=== PATIENT | female | born 1965 | race Caucasian/White ===

== ENCOUNTER 2022-05-02 07:28 | Day surgery (SDC) | payer MEDICARE, OTHER ==
[~2022-05-02 07:28] MED LIST: Lactated Ringers 1,000 ML IV SCH; Lidocaine 1%/Sod Bicarbonate in NS 8.4% 1 ML Syringe IDERM PRN; Sodium Chloride 0.9% 10 ML Syringe FLUSH PRN; Sodium Chloride 0.9% 10 ML Syringe FLUSH SCH
[2022-05-02] MEDS ORDERED: Albuterol 0.083% 2.5 MG/3 ML Neb Soln NEB SCH (08:59)
== END 2022-05-02 09:45 | disposition home or self-care (01) ==
LOC: JD.SDS 07:28
PROVIDERS: ATTEND Surgery
DX: K21.9 Gastro-esophageal reflux disease without esophagitis (principal); R19.5 Other fecal abnormalities; Z53.09 Procedure and treatment not carried out because of other contraindication; E11.9 Type 2 diabetes mellitus without complications; F32.A Depression, unspecified; F17.210 Nicotine dependence, cigarettes, uncomplicated; F41.9 Anxiety disorder, unspecified; E78.00 Pure hypercholesterolemia, unspecified; R10.32 Left lower quadrant pain; R91.8 Other nonspecific abnormal finding of lung field; E66.9 Obesity, unspecified; K76.0 Fatty (change of) liver, not elsewhere classified; Z98.890 Other specified postprocedural states; Z90.710 Acquired absence of both cervix and uterus; Z79.899 Other long term (current) drug therapy; Z79.82 Long term (current) use of aspirin; Z68.29 Body mass index [BMI] 29.0-29.9, adult
CPT/HCPCS: 74177; J3490; J7120; Q9967

== ENCOUNTER 2023-01-17 11:52 | Emergency (ER) | payer MEDICARE, OTHER, MEDICAID ==
[2023-01-17] MEDS ORDERED: Iopamidol 755 Mg/ML 100 ML Bottle IVPUSH ONE (12:26)
[2023-01-17] MEDS ORDERED: Sodium Chloride 0.9% 100 ML IV SCH (12:30)
[2023-01-17 12:43] LABS: BASOPHILS PERCENT AUTO 0.5 % (0.0-1.0); EOSINOPHILS ABSOLUTE AUTO 0.1 K/mm3 (0.0-0.4); EOSINOPHILS PERCENT AUTO 1.7 % (0.0-6.0); HEMATOCRIT 48.2 % (37.0-47.0); HEMOGLOBIN 15.4 gm/dl (12.0-16.0); IMMATURE GRAN ABSOLUTE AUTO 0.01 K/mm3 (0.00-0.05); IMMATURE GRAN PERCENT AUTO 0.2 % (0.0-0.4); LYMPHOCYTES ABSOLUTE AUTO 1.5 K/mm3 (1.0-4.8); LYMPHOCYTES PERCENT AUTO 25.7 % (24.0-44.0); MEAN CORPUSCULAR HEMOGLOBIN 25.1 pg (28.0-32.0); MEAN CORPUSCULAR VOLUME 78.5 fl (83.0-99.0); MEAN PLATELET VOLUME 9.8 fl (9.4-12.3); MONOCYTES ABSOLUTE AUTO 0.7 K/mm3 (0.0-0.8); MONOCYTES PERCENT AUTO 11.3 % (0.0-8.0); NEUTROPHILS ABSOLUTE AUTO 3.6 K/mm3 (1.8-7.7); NEUTROPHILS PERCENT AUTO 60.6 % (41.0-71.0); PLATELET COUNT,PLT 157 K/mm3 (150-400); RED BLOOD CELL COUNT 6.14 M/mm3 (4.10-5.30); WHITE BLOOD CELL COUNT,WBC 5.92 K/mm3 (3.9-11.3)
[2023-01-17] MEDS ORDERED: LORazepam 2 MG/ML SDV IVPUSH ONE ×2 (12:56→14:01)
[2023-01-17] MEDS ORDERED: Morphine 2 MG/ML SYRINGE IVPUSH ONE (12:56)
[2023-01-17] MEDS: Sodium Chloride 0.9% 10 ML Syringe FLUSH PRN ×2 (12:58→13:22)
[2023-01-17 13:11] LABS: INR 1.18; PROTHROMBIN TIME 12.5 SECONDS (9.7-12.0)
[2023-01-17 13:12] LABS: PTT,PARTIAL THROMBOPLSTIN TIME 29.9 SECONDS (21.7-31.4)
[2023-01-17 13:13] LABS: A/G RATIO 0.8 (1-2); ALBUMIN 3.1 g/dl (3.4-5.0); ANION GAP 15.9 (5-15); BILIRUBIN TOTAL 0.7 mg/dL (0.2-1.0); BUN/CREATININE RATIO 19.3 (14-18); CREATININE 1.4 mg/dL (0.55-1.02); EST CRCL DRUG DOSING (CG) 35.06 mL/min; POTASSIUM,K 2.9 mEq/L (3.5-5.1); PROTEIN TOTAL,TP 6.8 g/dl (6.4-8.2)
[2023-01-17] MEDS ORDERED: Sodium Chloride 0.9% 1,000 ML IV SCH (14:15)
[2023-01-17] MEDS: Potassium Chloride 10 MEQ in Premix Bag 1 BAG IV SCH ×4 (15:15→19:36)
[2023-01-17] MEDS ORDERED: Potassium Chloride 20 MEQ Tab.ER PO ONE (20:29)
== END 2023-01-17 21:01 | disposition home or self-care (01) ==
LOC: JD.ED 11:52
DX: R53.1 Weakness (principal); I10 Essential (primary) hypertension; K21.9 Gastro-esophageal reflux disease without esophagitis; E11.9 Type 2 diabetes mellitus without complications; E66.9 Obesity, unspecified; Z79.82 Long term (current) use of aspirin; Z88.8 Allergy status to other drugs, medicaments and biological substances; Z68.26 Body mass index [BMI] 26.0-26.9, adult
CPT/HCPCS: 36415; 70450; 70496; 70498; 70551; 71045; 72125; 80053; 82947; 84484; 85025; 85610; 85730; 93005; 96361; 96365; 96366; 96375; 96376; 99285; A9270; J2060; J2270; J3480; J3490; J7030; Q9967; 93010; 99284

== ENCOUNTER 2023-11-11 21:03 | Inpatient (IN) | payer MEDICARE, OTHER, MEDICAID ==
[2023-11-11] MEDS ORDERED: Naloxone 0.4 MG/ML SDV IVPUSH PRN (21:49)
[2023-11-11] MEDS: Morphine 4 MG/ML Syringe IVPUSH PRN (21:56)
[2023-11-11] MEDS: Sodium Chloride 0.9% 10 ML Syringe FLUSH PRN (21:57)
[2023-11-11 22:05] LABS: BASOPHILS PERCENT AUTO 0.3 % (0.0-1.0); EOSINOPHILS ABSOLUTE AUTO 0.1 K/mm3 (0.0-0.4); HEMATOCRIT 47.8 % (37.0-47.0); HEMOGLOBIN 15.1 gm/dl (12.0-16.0); IMMATURE GRAN ABSOLUTE AUTO 0.05 K/mm3 (0.00-0.05); IMMATURE GRAN PERCENT AUTO 0.4 % (0.0-0.4); LYMPHOCYTES ABSOLUTE AUTO 1.5 K/mm3 (1.0-4.8); LYMPHOCYTES PERCENT AUTO 12.2 % (24.0-44.0); MEAN CORPUSCULAR HEMOGLOBIN 28.4 pg (28.0-32.0); MEAN CORPUSCULAR HGB CONC 31.6 g/dl (32.0-36.0); MEAN CORPUSCULAR VOLUME 89.8 fl (83.0-99.0); MEAN PLATELET VOLUME 9.8 fl (9.4-12.3); MONOCYTES ABSOLUTE AUTO 0.9 K/mm3 (0.0-0.8); MONOCYTES PERCENT AUTO 6.8 % (0.0-8.0); NEUTROPHILS PERCENT AUTO 79.3 % (41.0-71.0); PLATELET COUNT,PLT 204 K/mm3 (150-400); RED BLOOD CELL COUNT 5.32 M/mm3 (4.10-5.30); WHITE BLOOD CELL COUNT,WBC 12.59 K/mm3 (3.9-11.3)
[2023-11-11 22:28] LABS: INR 1.07; PROTHROMBIN TIME 11.3 SECONDS (9.7-12.0)
[2023-11-11 22:29] LABS: PTT,PARTIAL THROMBOPLSTIN TIME 29.7 SECONDS (21.7-31.4)
[2023-11-11 22:34] LABS: A/G RATIO 0.8 (1-2); ALBUMIN 3.7 g/dl (3.4-5.0); BILIRUBIN TOTAL 0.5 mg/dL (0.2-1.0); CALCIUM 9.7 mg/dL (8.5-10.1); EST CRCL DRUG DOSING (CG) 24.55 mL/min; PROTEIN TOTAL,TP 8.2 g/dl (6.4-8.2)
[2023-11-12] MEDS ORDERED: Morphine 4 MG/ML Syringe IVPUSH ONE (00:19)
[2023-11-12] MEDS ORDERED: Ondansetron 4 MG/2 ML SDV IVPUSH PRN (02:25)
[2023-11-12 06:38] LABS: APPEARANCE,URINE CLEAR (Clear); BILIRUBIN,URINE NEGATIVE (Negative); COLOR,URINE YELLOW (Yellow); GLUCOSE,URINE NEGATIVE (Negative); KETONES,URINE NEGATIVE (Negative); LEUKOCYTE ESTERASE,URINE NEGATIVE (Negative); NITRITE,URINE NEGATIVE (Negative); OCCULT BLOOD,URINE NEGATIVE (Negative); PH,URINE 8.5 (5.0-8.0); PROTEIN,URINE 1+ (Negative); UROBILINOGEN,URINE 0.2 (0.2-1.0)
[2023-11-12 07:39] LABS: AMORPHOUS SEDIMENT,URINE FEW /hpf (NOT SEEN); BACTERIA,URINE FEW /hpf (FEW); EPITHELIAL CELLS,URINE 0-5 /hpf (0-5); MUCUS,URINE FEW /hpf (FEW); RBC,URINE 0-5 /hpf (0-5); WBC,URINE 0-5 /hpf (0-5)
[2023-11-12] MEDS: Enoxaparin 30 MG/0.3 ML Syringe SUBCUT SCH (11:39)
[2023-11-12] MEDS ORDERED: Morphine 4 MG/ML Syringe IVPUSH PRN (16:38)
[2023-11-12] MEDS: Sodium Chloride 0.9% 1,000 ML IV ONE (17:31)
[2023-11-12] MEDS: HYDROmorphone 0.5 MG/0.5 ML Syringe IVPUSH PRN (17:31)
[2023-11-12] MEDS: Fenofibrate Nanocrystallized 145 MG Tab PO SCH (17:31)
[2023-11-12] MEDS: Venlafaxine 75 MG Cap.ER PO SCH (17:31)
[2023-11-12] MEDS: buPROPion 150 MG Tab.ER PO SCH (17:31)
[2023-11-12] MEDS: Furosemide 20 MG Tab PO SCH (18:37)
[2023-11-12] MEDS: Acetaminophen/HYDROcodone 325-10 MG Tab PO PRN (20:36)
[2023-11-12] MEDS: atorvaSTATin 20 MG Tab PO SCH (20:38)
[2023-11-12] MEDS: Sodium Bicarbonate 650 MG Tab PO SCH (20:38)
[2023-11-12] MEDS: Famotidine 20 MG Tab PO SCH (20:39)
[2023-11-12] MEDS: Prazosin 1 MG Cap PO SCH (20:44)
[2023-11-12] MEDS ORDERED: Hydrochlorothiazide 25 MG Tab PO SCH (21:00)
[2023-11-13 04:53] LABS: BASOPHILS PERCENT AUTO 0.3 % (0.0-1.0); EOSINOPHILS ABSOLUTE AUTO 0.1 K/mm3 (0.0-0.4); EOSINOPHILS PERCENT AUTO 0.7 % (0.0-6.0); HEMATOCRIT 46.6 % (37.0-47.0); HEMOGLOBIN 14.9 gm/dl (12.0-16.0); IMMATURE GRAN ABSOLUTE AUTO 0.04 K/mm3 (0.00-0.05); IMMATURE GRAN PERCENT AUTO 0.4 % (0.0-0.4); LYMPHOCYTES PERCENT AUTO 8.7 % (24.0-44.0); MEAN CORPUSCULAR HEMOGLOBIN 27.9 pg (28.0-32.0); MEAN CORPUSCULAR VOLUME 87.3 fl (83.0-99.0); MONOCYTES ABSOLUTE AUTO 0.8 K/mm3 (0.0-0.8); MONOCYTES PERCENT AUTO 7.2 % (0.0-8.0); NEUTROPHILS ABSOLUTE AUTO 9.3 K/mm3 (1.8-7.7); NEUTROPHILS PERCENT AUTO 82.7 % (41.0-71.0); PLATELET COUNT,PLT 166 K/mm3 (150-400); RED BLOOD CELL COUNT 5.34 M/mm3 (4.10-5.30); WHITE BLOOD CELL COUNT,WBC 11.18 K/mm3 (3.9-11.3)
[2023-11-13 05:21] LABS: ANION GAP 16.4 (5-15); BUN/CREATININE RATIO 15.8 (14-18); CALCIUM 9.7 mg/dL (8.5-10.1); CREATININE 1.2 mg/dL (0.55-1.02); EST CRCL DRUG DOSING (CG) 40.91 mL/min; POTASSIUM,K 4.4 mEq/L (3.5-5.1)
[2023-11-13] MEDS ORDERED: fentaNYL 100 MCG/2 ML SDV ONE (05:46)
[2023-11-13] MEDS ORDERED: Midazolam 1 MG/ML 2 ML SDV ONE (05:47)
[2023-11-13] MEDS ORDERED: Ketamine 200 MG/20 ML MDV ONE (06:10)
[2023-11-13] MEDS ORDERED: Sodium Chloride 0.9% 10 ML Syringe FLUSH PRN (06:42)
[2023-11-13] MEDS ORDERED: Lactated Ringers 1,000 ML IV SCH (06:45)
[2023-11-13] MEDS ORDERED: ePHEDrine 50 MG/ML SDV ONE (07:15)
[2023-11-13] MEDS ORDERED: ceFAZolin 2 GM Vial ONE (07:15)
[2023-11-13] MEDS ORDERED: dexmedeTOMIDine HCl 200 MCG/2 ML SDV ONE (07:15)
[2023-11-13] MEDS ORDERED: Phenylephrine 1% 10 MG/ML SDV ONE (07:15)
[2023-11-13] MEDS: Morphine 8 MG, EPINEPHrine 0.3 MG, Cefuroxime 750 MG, Ketorolac 30 MG, Sodium Chloride ... PRN (08:20)
[2023-11-13] MEDS: Vancomycin 1 GM SDV ONE (08:20)
[2023-11-13] MEDS: Tranexamic Acid 1,000 MG/10 ML Vial ONE (08:20)
[2023-11-13] MEDS: Scopalamine 1mg/3day Transdermal Patch TRDERM ONE (10:40)
[2023-11-13] MEDS: Acetaminophen 325 MG Tab PO ONE (10:40)
[2023-11-13] MEDS: Famotidine 20 MG/2 ML SDV IVPUSH ONE (10:40)
[2023-11-13] MEDS: Sodium Chloride 0.9% 10 ML Syringe FLUSH SCH (11:36)
[2023-11-13] MEDS: Venlafaxine 75 MG Cap.ER PO SCH (11:36)
[2023-11-13] MEDS: Sodium Chloride 0.9% 1,000 ML IV SCH (11:38)
[2023-11-14] MEDS: Enoxaparin 40 MG/0.4 ML Syringe SUBCUT SCH (08:22)
[2023-11-14] MEDS: Famotidine 20 MG Tab PO SCH (08:23)
[2023-11-14] MEDS: Albuterol 6.7 GM Inhaler INH PRN (11:11)
== END 2023-11-14 16:15 | disposition home or self-care (01) | DRG 522 ==
LOC: JD.ED 21:03 → JD.MS 11-12 00:46
PROVIDERS: ADMIT Family Medicine; ATTEND Family Medicine
PROC: 0SRS0JZ Replacement of Left Hip Joint, Femoral Surface with Synthetic Substitute, Open Approach (ICD-10-PCS; principal; 2023-11-13 07:30)
DX: S72.002A Fracture of unspecified part of neck of left femur, initial encounter for closed fracture (principal); N17.9 Acute kidney failure, unspecified; J96.11 Chronic respiratory failure with hypoxia; G89.29 Other chronic pain; J44.9 Chronic obstructive pulmonary disease, unspecified; Z68.31 Body mass index [BMI] 31.0-31.9, adult; E78.5 Hyperlipidemia, unspecified; I10 Essential (primary) hypertension; E11.9 Type 2 diabetes mellitus without complications; E66.9 Obesity, unspecified; F32.A Depression, unspecified; F41.9 Anxiety disorder, unspecified; M19.90 Unspecified osteoarthritis, unspecified site; K21.9 Gastro-esophageal reflux disease without esophagitis; E78.00 Pure hypercholesterolemia, unspecified; E86.0 Dehydration; F17.210 Nicotine dependence, cigarettes, uncomplicated; Z88.8 Allergy status to other drugs, medicaments and biological substances; Z79.84 Long term (current) use of oral hypoglycemic drugs; Z86.16 Personal history of COVID-19; Z90.89 Acquired absence of other organs; Z99.81 Dependence on supplemental oxygen; Z90.710 Acquired absence of both cervix and uterus; Z98.890 Other specified postprocedural states; Z79.899 Other long term (current) drug therapy; W01.0XXA Fall on same level from slipping, tripping and stumbling without subsequent striking against object, initial encounter
CPT/HCPCS: 36415; 73502; 80053; 85025; 85610; 85730; 96374; 99285; J2270 ×2; J3490; 01230; 73501-26-LT; 73501-LT; 80048; 81001; 87641; 94640; 94761; 97110-GP; 97161-GP; 97530-GP; 99222; 99232; 99238; 99283; A9270-GY; C1776; J0171; J0690; J0697; J1170; J1650; J1885; J2250; J2371; J3010; J3370; J7030; J7120

== ENCOUNTER 2024-08-03 18:20 | Emergency (ER) | payer MEDICARE, OTHER ==
[2024-08-03] MEDS: EPINEPHrine 1:10,000 1 MG/10 ML Syringe IVPUSH ONE ×3 (18:22→18:28)
[2024-08-03] MEDS: Atropine 0.1 MG/ML 10 ML Syringe IVPUSH ONE (18:24)
== END 2024-08-03 21:30 | disposition expired ==
LOC: JD.ED 18:20
DX: I46.9 Cardiac arrest, cause unspecified (principal); I10 Essential (primary) hypertension; E78.00 Pure hypercholesterolemia, unspecified; J44.9 Chronic obstructive pulmonary disease, unspecified; E11.9 Type 2 diabetes mellitus without complications; Z88.8 Allergy status to other drugs, medicaments and biological substances; Z79.51 Long term (current) use of inhaled steroids; Z79.899 Other long term (current) drug therapy; Z79.84 Long term (current) use of oral hypoglycemic drugs; Z86.16 Personal history of COVID-19
CPT/HCPCS: 92950; 96374; 99285-25; 99291; J0171; J0461